=== PATIENT | male | born 1960 | race Caucasian/White ===

== ENCOUNTER → 2018-02-10 | Emergency (ER) | payer OTHER ==
[~2018-02-10] VITALS: Ht 170.2 cm; Wt 112.5 kg
[~2018-02-10] MED LIST: AVAPRO150 MG; CELEBREX100 MG; FOLIC ACID0.8 MG; HUMIRA40 MG/0.1; SYNTHROID50 MCG; TREXALL5 MG; ZOCOR20 MG
== END | disposition home or self-care (01) ==
LOC: ER 19:15
DX: J06.9 Acute upper respiratory infection, unspecified (principal); R31.9 Hematuria, unspecified; J11.1 Influenza due to unidentified influenza virus with other respiratory manifestations

== ENCOUNTER → 2018-03-24 | Outpatient (CLI) | payer OTHER | END | disposition home or self-care (01) | LOC: RAD 10:39 | DX: J44.0 Chronic obstructive pulmonary disease with (acute) lower respiratory infection (principal) ==

== ENCOUNTER 2018-08-27 09:49 | Emergency (ER) | payer OTHER ==
[~2018-08-27] VITALS: Ht 170.2 cm; Wt 111.6 kg
[2018-08-27] MEDS ORDERED: COZAAR100 MG PO (10:14)
[2018-08-27] MEDS ORDERED: METOPROLOL SUC100 MG PO (10:15)
== END 2018-08-27 14:15 | disposition home or self-care (01) ==
LOC: ER 09:49
DX: R42 Dizziness and giddiness (principal); J32.0 Chronic maxillary sinusitis; E11.649 Type 2 diabetes mellitus with hypoglycemia without coma

== ENCOUNTER 2019-05-12 09:43 | Emergency (ER) | payer OTHER ==
[~2019-05-12] VITALS: Ht 170.2 cm; Wt 112.5 kg
[~2019-05-12 09:43] MED LIST changes: +COZAAR100 MG PO; +METOPROLOL SUC100 MG PO
== END 2019-05-12 16:46 | disposition home or self-care (01) ==
LOC: ER 09:43
DX: N20.0 Calculus of kidney (principal); K57.90 Diverticulosis of intestine, part unspecified, without perforation or abscess without bleeding

== ENCOUNTER 2019-09-19 11:48 | Emergency (ER) | payer OTHER ==
[~2019-09-19] VITALS: Ht 170.2 cm; Wt 109.8 kg
== END 2019-09-19 20:00 | disposition home or self-care (01) ==
LOC: ER 11:48
DX: N20.0 Calculus of kidney (principal); K80.80 Other cholelithiasis without obstruction; N39.0 Urinary tract infection, site not specified; R10.32 Left lower quadrant pain

== ENCOUNTER 2020-01-11 11:17 | Emergency (ER) | payer OTHER ==
[~2020-01-11] VITALS: Ht 170.2 cm; Wt 108.0 kg
== END 2020-01-11 20:22 | disposition home or self-care (01) ==
LOC: ER 11:17
DX: K58.9 Irritable bowel syndrome, unspecified (principal); R31.29 Other microscopic hematuria

== ENCOUNTER 2020-02-14 11:50 | Emergency (ER) | payer OTHER ==
[~2020-02-14] VITALS: Ht 170.2 cm; Wt 108.0 kg
[2020-02-14] MEDS ORDERED: AVAPRO75 MG (12:05)
[2020-02-14] MEDS ORDERED: FORTAMET500 MG (12:07)
[2020-02-14] MEDS ORDERED: VITAMIN D-40010 MCG (12:07)
[2020-02-14] MEDS ORDERED: BACTRIM DS TAB1 EACH PO (14:19)
== END 2020-02-14 16:29 | disposition home or self-care (01) ==
LOC: ER 11:50
DX: N43.2 Other hydrocele (principal); N39.0 Urinary tract infection, site not specified; N50.89 Other specified disorders of the male genital organs

== ENCOUNTER → 2020-05-10 06:00 | Outpatient (CLI) | payer OTHER ==
[~2020-05-10 06:00] MED LIST changes: +AVAPRO75 MG; +BACTRIM DS TAB1 EACH PO; +FORTAMET500 MG; +VITAMIN D-40010 MCG; +VITAMIN D310 MCG/1 M PO
== END | disposition home or self-care (01) ==
LOC: LAB 06:00 → ADM 08:00 → CIR.AMB 05-14 07:00 → EDSTATUS 05-14 08:00 → CIR.AMB 05-14 08:00
PROVIDERS: ATTEND Surgery
DX: N20.0 Calculus of kidney (principal); Z01.810 Encounter for preprocedural cardiovascular examination

== ENCOUNTER 2020-07-11 09:31 | Day surgery (SDC) | payer OTHER ==
[~2020-07-11] VITALS: Ht 170.2 cm; Wt 105.7 kg
[2020-07-11] MEDS ORDERED: LEVAQUIN500 MG PO (18:08)
[2020-07-11] MEDS ORDERED: TAMS0.4C PO (18:08)
[2020-07-11] MEDS ORDERED: KETO10TA2 PO (18:08)
== END 2020-07-12 08:00 | disposition home or self-care (01) ==
LOC: ER 09:31 → SEC-K 13:52 → ER 13:52 → SURH 13:52 → O/R 13:52 → CIR.AMB 13:58 → EDSTATUS 15:00 → SEC-K 16:36 → SURH 16:36 → O/R 21:51 → SURH 21:51 → SEC-K 21:51 → O/R 07-12 02:50 → CIR.AMB 07-12 08:00
PROVIDERS: ATTEND Emergency Medicine
DX: N20.0 Calculus of kidney (principal); Z95.0 Presence of cardiac pacemaker

== ENCOUNTER 2022-06-16 00:05 | Emergency (ER) | payer OTHER ==
[~2022-06-16] VITALS: Ht 177.8 cm; Wt 113.4 kg
[~2022-06-16 00:05] MED LIST changes: +KETO10TA2 PO; +LEVAQUIN500 MG PO; +TAMS0.4C PO
[2022-06-16] MEDS ORDERED: DICLOFENAC SODI50 MG PO (04:21)
[2022-06-16] MEDS ORDERED: DUI500 PO (05:28)
[2022-06-16] MEDS ORDERED: INTESTINEX680 M1 PO (05:28)
== END 2022-06-17 | disposition home or self-care (01) ==
LOC: ER 00:05
DX: F41.8 Other specified anxiety disorders (principal); M19.90 Unspecified osteoarthritis, unspecified site; J45.909 Unspecified asthma, uncomplicated; I10 Essential (primary) hypertension; Z91.041 Radiographic dye allergy status

== ENCOUNTER 2022-10-27 13:01 | Emergency (ER) | payer OTHER ==
[~2022-10-27] VITALS: Ht 170.2 cm; Wt 122.5 kg
[~2022-10-27 13:01] MED LIST changes: +DICLOFENAC SODI50 MG PO; +DUI500 PO; +INTESTINEX680 M1 PO
== END 2022-10-27 15:33 | disposition home or self-care (01) ==
LOC: ER 13:01
DX: S30.811A Abrasion of abdominal wall, initial encounter (principal); L08.9 Local infection of the skin and subcutaneous tissue, unspecified

== ENCOUNTER 2022-11-05 06:05 | Emergency (ER) | payer OTHER ==
[~2022-11-05] VITALS: Ht 177.8 cm; Wt 138.3 kg
[2022-11-05] MEDS ORDERED: CEPHALEXIN500 MG PO (07:54)
[2022-11-05] MEDS ORDERED: MUPIROCIN1 G1 TOP (07:54)
== END 2022-11-05 07:57 ==
LOC: ER 06:05
DX: N47.1 Phimosis (principal); E11.9 Type 2 diabetes mellitus without complications; Z79.84 Long term (current) use of oral hypoglycemic drugs; I10 Essential (primary) hypertension

== ENCOUNTER 2022-11-16 12:14 | Emergency (ER) | payer OTHER ==
[~2022-11-16] VITALS: Ht 170.2 cm; Wt 122.5 kg
[~2022-11-16 12:14] MED LIST changes: +CEPHALEXIN500 MG PO; +MUPIROCIN1 G1 TOP
[2022-11-16] MEDS ORDERED: SIMVASTATIN20 MG PO (13:32)
[2022-11-16] MEDS ORDERED: FOLIC ACID1 MG PO (13:32)
[2022-11-16] MEDS ORDERED: MUPIROCIN1 G1 TOP (17:23)
[2022-11-16] MEDS ORDERED: NORFLEX100MG PO (17:30)
== END 2022-11-16 17:48 | disposition home or self-care (01) ==
LOC: ER 12:14
DX: S29.9XXA Unspecified injury of thorax, initial encounter (principal); W18.31XA Fall on same level due to stepping on an object, initial encounter; Y93.9 Activity, unspecified; Y92.019 Unspecified place in single-family (private) house as the place of occurrence of the external cause; S50.811A Abrasion of right forearm, initial encounter; S80.211A Abrasion, right knee, initial encounter

== ENCOUNTER → 2023-07-19 | Emergency (ER) | payer OTHER ==
[~2023-07-19] VITALS: Ht 170.2 cm; Wt 105.2 kg
[~2023-07-19] MED LIST changes: +FOLIC ACID1 MG PO; +NORFLEX100MG PO; +SIMVASTATIN20 MG PO
== END | disposition designated cancer center or children's hospital (05) ==
LOC: ER 14:07
PROVIDERS: Emergency Medicine
DX: R53.81 Other malaise (principal); I10 Essential (primary) hypertension; Z95.1 Presence of aortocoronary bypass graft; Z95.0 Presence of cardiac pacemaker
CPT/HCPCS: 36415; 71045; 93005; 96365; 99285; J7030

== ENCOUNTER 2024-05-23 13:39 | Emergency (ER) | payer OTHER ==
[~2024-05-23] VITALS: Ht 170.2 cm; Wt 99.8 kg
[2024-05-23] MEDS ORDERED: 0.9 % SODIUM CHLORIDE 1,000 ML IV STA (14:51)
[2024-05-23 16:28] LABS: HEMOGLOBIN 12.3 g/dL (13-16.00); MEAN CELL VOLUME 92.7 fL (80.0-100.00); MEAN CORPUSCULAR HEMOGLOBIN 31.6 pg (27.00-32.0); MEAN CORPUSCULAR HGB CONC 34.1 g/dl (32.0-36.0); PLATELET COUNT 201 K/uL (150-450); RED BLOOD COUNT 3.89 M/uL (4.00-6.00); RED CELL DISTRIBUTION WIDTH 16.6 % (11.5-14.5)
[2024-05-23 16:54] LABS: ALBUMIN 2.6 gm/dL (3.4-5.0); BILIRUBIN TOTAL 1.18 mg/dL (0.3-1.2); BILIRUBIN,CONJUGATED 0.29 mg/dL (0.0-0.2); BILIRUBIN,UNCONJUGATED 0.89 mg/dL (0.0-0.6); CREATININE SERUM 1.01 mg/dL (0.70-1.30); GFR 74.85; POTASSIUM 3.84 mEq/L (3.5-5.1); TOTAL PROTEIN 7.3 gm/dL (6.4-8.2)
[2024-05-23 17:15] LABS: URINE APPEARANCE Clear; URINE BILIRRUBIN Negative (NEGATIVE); URINE BLOOD Negative; URINE COLOR Yellow; URINE GLUCOSE Negative (NEGATIVE); URINE LEUKOCYTE Negative; URINE NITRATE Negative; URINE PROTEIN Trace (NEGATIVE)
[2024-05-23 17:19] LABS: URINE EPITHELIAL CELLS 6.1 uL (0.0-38.8); URINE RBC 2.1 uL (0.0-20.8); URINE WBC 6.9 uL (0.0-23.2)
[2024-05-23] MEDS ORDERED: ONDANSETRON HCL 2 MG/ML VIAL IV ONE (22:45)
== END 2024-05-23 22:40 | disposition home or self-care (01) ==
LOC: ER 13:39
PROVIDERS: General Practice
DX: K80.20 Calculus of gallbladder without cholecystitis without obstruction (principal); R10.9 Unspecified abdominal pain; M19.90 Unspecified osteoarthritis, unspecified site; I10 Essential (primary) hypertension; N20.0 Calculus of kidney
CPT/HCPCS: 36415; 74177; 93005; 96365; 96366; 99284; J2405; J7030; Q9965

== ENCOUNTER 2024-05-25 19:15 | Inpatient (IN) | payer OTHER ==
[~2024-05-25] VITALS: Ht 170.2 cm; Wt 95.3 kg
--- NOTE | 2024-05-25 19:30 | NUR ---
SE LLAMA A PACIENTE EL CUAL NO SE ENCUENTRA EN AREA DE LUPE DE EMERGENCIAS.
--- NOTE | 2024-05-25 19:39 | NUR ---
SE RECIBE PTE DE AMBULANCIA CUYA QUEJA PRINCIPAL ES MALESTAR EN AMBOS FLANCOS DESDE EL SABADO PASADO. SE LE PREGUNTA A PTE SI ES MALESTAR O DOLOR Y PTE DESCRIBE NAIMA MOLESTIA. SE OBSERVA PTE CANALIZADO EN [place] CON ANGIO #20, EL CUAL ESTA PATENTE, CRYSTAL DE EDEMA Y ERITEMA. SE MIDEN SV Y SE UBICA EN PASILLO. PTE NOTIFICA EN REPETIDAS OCASIONES DISGUSTO EN REFERENCIA A QUE LE DIERON EL CYNDI LA ULTIMA VEZ QUE VISITO LUPE DE EMERGENCIAS, EN VEZ DE OPERARLO. SE LE ORIENTA A PTE QUE LAS OPERACIONES NO FUNCIONAN ASI, PTE CONTINUA EN BOYD PENSAR.
[2024-05-25] MEDS ORDERED: FAMOTIDINE/PF 20 MG in 0.9 % SODIUM CHLORIDE 8 ML IV PUSH STA (20:46)
--- NOTE | 2024-05-25 20:51 | NUR ---
MASCULINO EVALUADO POR DR BECERRA. SE ORIENTA A PTE SOBRE ORDENES MEDICAS Y REFIERE ENTENDER. SE COLECTAN MUESTRAS DE LABORATORIO BAJO MEDIDAS ASEPTICAS. SE CANALIZA Y SE ADMINISTRAN MEDICAMENTOS JAYDA ORDEN MEDICA. SE NOTIFICA SONOGRAMA PENDIENTE.
[2024-05-25] MEDS ORDERED: ONDANSETRON HCL 2 MG/ML VIAL IV ONE (21:00)
[2024-05-25 21:13] LABS: HEMOGLOBIN 12.7 g/dL (13-16.00); MEAN CELL VOLUME 92.1 fL (80.0-100.00); MEAN CORPUSCULAR HEMOGLOBIN 31.7 pg (27.00-32.0); MEAN CORPUSCULAR HGB CONC 34.4 g/dl (32.0-36.0); PLATELET COUNT 237 K/uL (150-450); RED BLOOD COUNT 4.02 M/uL (4.00-6.00); RED CELL DISTRIBUTION WIDTH 16.9 % (11.5-14.5)
[2024-05-25 21:33] LABS: BILIRUBIN TOTAL 1.04 mg/dL (0.3-1.2); BILIRUBIN,CONJUGATED 0.24 mg/dL (0.0-0.2); BILIRUBIN,UNCONJUGATED 0.8 mg/dL (0.0-0.6); CALCIUM 9.1 mg/dL (8.5-10.1); CREATININE SERUM 1.14 mg/dL (0.70-1.30); GFR 65.09; GLOBULINA 4.7 G/DL (2.4-3.5); POTASSIUM 3.46 mEq/L (3.5-5.1); TOTAL PROTEIN 7.7 gm/dL (6.4-8.2)
[2024-05-25] MEDS ORDERED: MEPERIDINE HCL/PF 25 MG/ML VIAL IM ONE (23:15)
[2024-05-25] MEDS ORDERED: PROMETHAZINE HCL 25 MG/ML AMPUL IM ONE (23:15)
[2024-05-25] MEDS ORDERED: CEFTRIAXONE SODIUM 2,000 MG in 0.9 % SODIUM CHLORIDE 100 ML IV SCH (23:41)
[2024-05-25] MEDS ORDERED: ONDANSETRON HCL 4 MG in 0.9 % SODIUM CHLORIDE 50 ML IV PRN (23:45)
[2024-05-25] MEDS ORDERED: ACETAMINOPHEN 500 MG GEL..CAP PO PRN (23:45)
[2024-05-25] MEDS ORDERED: DEXTROSE 50 % IN WATER 0.5 G/ML DISP.SYRIN IV PRN (23:45)
[2024-05-25] MEDS ORDERED: 0.9 % SODIUM CHLORIDE 1,000 ML IV SCH (23:45)
[2024-05-25] MEDS ORDERED: INSULIN LISPRO 1,000 UNIT/10 ML UNITS SUBCUTANEO PRN (23:45)
[2024-05-25] MEDS ORDERED: MEPERIDINE HCL/PF 25 MG/ML VIAL IM PRN (23:45)
[2024-05-25] MEDS ORDERED: TAMSULOSIN HCL 0.4 MG CAP PO SCH (23:47)
[2024-05-26] MEDS ORDERED: METRONIDAZOLE/SODIUM CHLORIDE 100 ML IV SCH (01:00)
[2024-05-26 01:53] LABS: INR 1.09; PARTIAL THROMBOPLASTIN TIME 28.5 SECONDS (22.0-34.0); PROTHROMBIN TIME 11.4 SECONDS (9.0-11.5)
[2024-05-26 03:09] LABS: PH,URINE 5.5 (5.0-8.0); URINE APPEARANCE Clear; URINE BILIRRUBIN Negative (NEGATIVE); URINE BLOOD Negative; URINE COLOR Yellow; URINE GLUCOSE Negative (NEGATIVE); URINE LEUKOCYTE Trace; URINE NITRATE Negative; URINE PROTEIN Trace (NEGATIVE)
[2024-05-26 03:12] LABS: URINE BACTERIA 18.8 uL (0.0-1933); URINE EPITHELIAL CELLS 6.7 uL (0.0-38.8); URINE WBC 19.7 uL (0.0-23.2)
[2024-05-26 03:14] LABS: URINE RBC 1.2 uL (0.0-20.8)
[2024-05-26] MEDS ORDERED: LEVOTHYROXINE SODIUM 50 MCG TABLET PO SCH (06:00)
[2024-05-26] MEDS ORDERED: ATORVASTATIN CALCIUM 40 MG TABLET PO SCH (09:00)
[2024-05-26] MEDS ORDERED: IRBESARTAN 300 MG TABLET PO SCH (09:00)
[2024-05-26] MEDS ORDERED: DEXTROSE 50 % IN WATER 0.5 G/ML VIAL IV PRN (12:45)
[2024-05-26] MEDS ORDERED: ENOXAPARIN SODIUM 100 MG/ML SYRINGE SUBCUTANEO SCH (21:00)
[2024-05-27 13:30] LABS: HEMATOCRIT 35.8 % (39.0-48.0); HEMOGLOBIN 12.1 g/dL (13-16.00); MEAN CELL VOLUME 93.3 fL (80.0-100.00); MEAN CORPUSCULAR HEMOGLOBIN 31.4 pg (27.00-32.0); MEAN CORPUSCULAR HGB CONC 33.7 g/dl (32.0-36.0); PLATELET COUNT 203 K/uL (150-450); RED BLOOD COUNT 3.84 M/uL (4.00-6.00)
[2024-05-27 14:00] LABS: INR 1.12; PROTHROMBIN TIME 11.7 SECONDS (9.0-11.5)
[2024-05-27 14:17] LABS: ALBUMIN 2.9 gm/dL (3.4-5.0); BILIRUBIN TOTAL 0.92 mg/dL (0.3-1.2); CALCIUM 9.2 mg/dL (8.5-10.1); CREATININE SERUM 1.23 mg/dL (0.70-1.30); GFR 59.62; GLOBULINA 3.8 G/DL (2.4-3.5); POTASSIUM 3.47 mEq/L (3.5-5.1); TOTAL PROTEIN 6.7 gm/dL (6.4-8.2)
[2024-05-29 17:14] LABS: HEMATOCRIT 36.1 % (39.0-48.0); HEMOGLOBIN 12.1 g/dL (13-16.00); MEAN CELL VOLUME 94.6 fL (80.0-100.00); MEAN CORPUSCULAR HEMOGLOBIN 31.8 pg (27.00-32.0); MEAN CORPUSCULAR HGB CONC 33.6 g/dl (32.0-36.0); PLATELET COUNT 187 K/uL (150-450); RED BLOOD COUNT 3.82 M/uL (4.00-6.00); RED CELL DISTRIBUTION WIDTH 16.9 % (11.5-14.5)
== END 2024-05-31 10:31 | disposition home or self-care (01) | DRG 419 ==
LOC: ER 19:15 → MEDJ 23:45 → MEDI 23:45
PROVIDERS: General Practice; Internal Medicine; Specialist; ADMIT Internal Medicine; ATTEND Internal Medicine
PROC: BW40ZZZ Ultrasonography of Abdomen (ICD-10-PCS; 2024-05-25)
PROC: B24BZZZ Ultrasonography of Heart with Aorta (ICD-10-PCS; 2024-05-27)
PROC: B24BZZZ Ultrasonography of Heart with Aorta (ICD-10-PCS; 2024-05-29)
PROC: 0FT44ZZ Resection of Gallbladder, Percutaneous Endoscopic Approach (ICD-10-PCS; principal; 2024-05-29 15:30)
DX: K80.00 Calculus of gallbladder with acute cholecystitis without obstruction (principal); E03.9 Hypothyroidism, unspecified; E78.5 Hyperlipidemia, unspecified; I25.10 Atherosclerotic heart disease of native coronary artery without angina pectoris; I11.9 Hypertensive heart disease without heart failure

== ENCOUNTER 2024-06-17 16:15 | Inpatient (IN) | payer OTHER ==
[~2024-06-17] VITALS: Ht 170.2 cm; Wt 99.8 kg
--- NOTE | 2024-06-17 16:27 | NUR ---
PACIENTE MASCULINO ALERTA Y ORIENTADO X3, REFIERE DOLOR DE PECHO MALIK Y ROXIE Y LA PRESION ARTERIAL BAJA. SE LE REALIZA EKG Y SE LE PRESENTA A Y VERBALIZA COLOCARLO EN AREA DE CHEST PAIN.
[2024-06-17] MEDS ORDERED: 0.9 % SODIUM CHLORIDE 1,000 ML IV SCH ×2 (16:45→19:00)
[2024-06-17 17:17] LABS: HEMATOCRIT 35.5 % (39.0-48.0); MEAN CELL VOLUME 92.4 fL (80.0-100.00); MEAN CORPUSCULAR HEMOGLOBIN 31.3 pg (27.00-32.0); MEAN CORPUSCULAR HGB CONC 33.9 g/dl (32.0-36.0); PLATELET COUNT 206 K/uL (150-450); RED BLOOD COUNT 3.84 M/uL (4.00-6.00)
[2024-06-17 17:39] LABS: ALBUMIN 2.4 gm/dL (3.4-5.0); BILIRUBIN TOTAL 1.5 mg/dL (0.3-1.2); BILIRUBIN,CONJUGATED 0.4 mg/dL (0.0-0.2); BILIRUBIN,UNCONJUGATED 1.1 mg/dL (0.0-0.6); CALCIUM 8.7 mg/dL (8.5-10.1); CREATININE SERUM 1.37 mg/dL (0.70-1.30); GFR 52.65; GLOBULINA 4.1 G/DL (2.4-3.5); POTASSIUM 3.68 mEq/L (3.5-5.1); TOTAL PROTEIN 6.5 gm/dL (6.4-8.2)
[2024-06-17] MEDS ORDERED: ATORVASTATIN CALCIUM 40 MG TABLET PO SCH (18:52)
[2024-06-17] MEDS ORDERED: FAMOTIDINE/PF 20 MG in 0.9 % SODIUM CHLORIDE 8 ML IV PUSH SCH (18:52)
[2024-06-17] MEDS ORDERED: TICAGRELOR 90 MG TABLET PO SCH (18:56)
[2024-06-17] MEDS ORDERED: ASPIRIN 81 MG TAB.CHEW PO SCH (18:56)
[2024-06-17] MEDS ORDERED: DEXTROSE 50 % IN WATER 0.5 G/ML DISP.SYRIN IV PRN (19:00)
[2024-06-17] MEDS ORDERED: ONDANSETRON HCL 4 MG in 0.9 % SODIUM CHLORIDE 50 ML IV PRN (19:00)
[2024-06-17] MEDS ORDERED: ACETAMINOPHEN 500 MG GEL..CAP PO PRN (19:00)
[2024-06-17] MEDS ORDERED: INSULIN LISPRO 1,000 UNIT/10 ML UNITS SUBCUTANEO PRN (19:00)
[2024-06-17] MEDS ORDERED: TICAGRELOR 90 MG TABLET PO ONE (21:07)
[2024-06-17] MEDS ORDERED: FAMOtidine 200mg/20ml VIAL ONE (21:09)
[2024-06-17 22:33] LABS: PARTIAL THROMBOPLASTIN TIME 24.1 SECONDS (22.0-34.0)
[2024-06-17 22:35] LABS: D DIMER 2.38 MG/L
[2024-06-17 22:37] LABS: INR 1.07; PROTHROMBIN TIME 11.2 SECONDS (9.0-11.5)
[2024-06-18 05:18] LABS: PH,URINE 6.5 (5.0-8.0); URINE APPEARANCE Clear; URINE BACTERIA 75.5 uL (0.0-1933); URINE BILIRRUBIN Negative (NEGATIVE); URINE BLOOD Negative; URINE COLOR Yellow; URINE EPITHELIAL CELLS 8.4 uL (0.0-38.8); URINE GLUCOSE Negative (NEGATIVE); URINE KETONE 15 (NEGATIVE); URINE LEUKOCYTE Trace; URINE NITRATE Negative; URINE PROTEIN Trace (NEGATIVE); URINE RBC 7.3 uL (0.0-20.8)
[2024-06-18 05:19] LABS: URINE CAST 0.76 uL (0.0-1.40)
[2024-06-18] MEDS ORDERED: LEVOTHYROXINE SODIUM 50 MCG TABLET PO SCH (06:00)
[2024-06-18] MEDS ORDERED: TICAGRELOR 90 MG TABLET PO ONE (06:20)
[2024-06-18] MEDS ORDERED: 0.9 % SODIUM CHLORIDE 1,000 ML IV SCH (07:30)
[2024-06-18] MEDS ORDERED: NOREPINEPHRINE BITARTRATE 1 MG/ML AMPUL IV ONE (07:45)
[2024-06-18] MEDS ORDERED: ENOXAPARIN SODIUM 40 MG/0.4 ML SYRINGE SUBCUTANEO SCH (09:00)
[2024-06-18] MEDS ORDERED: ENOXAPARIN SODIUM 40 MG/0.4 ML SYRINGE SUBCUTANEO ONE (09:42)
[2024-06-18] MEDS ORDERED: FAMOtidine 200mg/20ml VIAL ONE (09:42)
[2024-06-18] MEDS ORDERED: NOREPINEPHRINE BITARTRATE 1 MG/ML AMPUL IV STA (10:21)
[2024-06-18] MEDS ORDERED: NOREPINEPHRINE BITARTRATE 8 MG in DEXTROSE 5 % IN WATER 250 ML IV SCH (13:30)
[2024-06-18] MEDS ORDERED: ENOXAPARIN SODIUM 100 MG/ML SYRINGE SUBCUTANEO SCH (21:00)
[2024-06-18] MEDS ORDERED: ORPHENADRINE CITRATE 30 MG/ML AMPUL ONE (21:43)
[2024-06-18] MEDS ORDERED: METOCLOPRAMIDE HCL 5 MG/ML VIAL ONE (21:43)
[2024-06-19 02:35] LABS: CALCIUM 8.3 mg/dL (8.5-10.1); CREATININE SERUM 1.05 mg/dL (0.70-1.30); GFR 71.57; POTASSIUM 3.09 mEq/L (3.5-5.1)
[2024-06-19] MEDS ORDERED: ONDANSETRON HCL 2 MG/ML VIAL ONE (04:13)
[2024-06-19] MEDS ORDERED: NOREPINEPHRINE BITARTRATE 1 MG/ML AMPUL IV ONE (04:20)
[2024-06-19] MEDS ORDERED: TICAGRELOR 90 MG TABLET PO ONE (16:43)
[2024-06-19] MEDS ORDERED: FAMOtidine 200mg/20ml VIAL ONE (20:28)
[2024-06-19] MEDS ORDERED: FAMOTIDINE/PF 20 MG in 0.9 % SODIUM CHLORIDE 8 ML IV PUSH SCH (21:00)
[2024-06-20 09:46] LABS: HEMATOCRIT 33.4 % (39.0-48.0); HEMOGLOBIN 11.4 g/dL (13-16.00); MEAN CELL VOLUME 93.5 fL (80.0-100.00); MEAN CORPUSCULAR HGB CONC 34.2 g/dl (32.0-36.0); PLATELET COUNT 164 K/uL (150-450); RED BLOOD COUNT 3.57 M/uL (4.00-6.00)
[2024-06-21] MEDS ORDERED: POTASSIUM CHLORIDE IN WATER 40 MEQ/100 ML PIGGYBAG IV SCH (13:58)
[2024-06-21] MEDS ORDERED: MAGNESIUM SULFATE IN WATER 50 ML IV NR (14:00)
[2024-06-21] MEDS ORDERED: DIATRIZOATE MEGLUMINE, SODIUM 30 ML BOTTLE PO STA (14:09)
[2024-06-21] MEDS ORDERED: VANCOMYCIN HCL 1,000 MG VIAL IV SCH (21:00)
[2024-06-22] MEDS ORDERED: POTASSIUM CHLORIDE IN WATER 40 MEQ/100 ML PIGGYBAG IV ONE (00:55)
[2024-06-22] MEDS ORDERED: FAMOtidine 20 MG TABLET PO SCH (09:00)
[2024-06-22 15:19] LABS: CREATININE SERUM 0.98 mg/dL (0.70-1.30); GFR 77.5; POTASSIUM 3.76 mEq/L (3.5-5.1)
== END 2024-06-22 17:50 | disposition home or self-care (01) | DRG 683 ==
LOC: ER 16:15 → ICU-2 19:57 → ICU 06-20 02:24 → MEDI 06-20 22:57
PROVIDERS: Emergency Medicine; General Practice; Internal Medicine; ADMIT Internal Medicine; ATTEND Internal Medicine
PROC: B246ZZZ Ultrasonography of Right and Left Heart (ICD-10-PCS; 2024-06-17)
PROC: BW21ZZZ Computerized Tomography (CT Scan) of Abdomen and Pelvis (ICD-10-PCS; 2024-06-17)
PROC: B54NZZZ Ultrasonography of Left Upper Extremity Veins (ICD-10-PCS; 2024-06-20)
PROC: B34JZZZ Ultrasonography of Left Upper Extremity Arteries (ICD-10-PCS; 2024-06-20)
PROC: 4A12X4Z Monitoring of Cardiac Electrical Activity, External Approach (ICD-10-PCS; principal; 2024-06-21)
PROC: 02HV33Z Insertion of Infusion Device into Superior Vena Cava, Percutaneous Approach (ICD-10-PCS; 2024-06-21)
DX: I13.10 Hypertensive heart and chronic kidney disease without heart failure, with stage 1 through stage 4 chronic kidney disease, or unspecified chronic kidney disease (principal); I5A Non-ischemic myocardial injury (non-traumatic); N17.9 Acute kidney failure, unspecified; E87.6 Hypokalemia; R22.32 Localized swelling, mass and lump, left upper limb; I25.10 Atherosclerotic heart disease of native coronary artery without angina pectoris; E11.22 Type 2 diabetes mellitus with diabetic chronic kidney disease; N18.9 Chronic kidney disease, unspecified; E03.9 Hypothyroidism, unspecified; R11.2 Nausea with vomiting, unspecified; Z79.84 Long term (current) use of oral hypoglycemic drugs; Z95.0 Presence of cardiac pacemaker

== ENCOUNTER 2024-08-03 16:43 | Emergency (ER) | payer OTHER ==
[~2024-08-03] VITALS: Ht 170.2 cm; Wt 105.2 kg
[2024-08-03] MEDS ORDERED: ONDANSETRON HCL 2 MG/ML VIAL IV ONE (18:15)
[2024-08-03] MEDS ORDERED: ONDANSETRON HCL 2 MG/ML VIAL ONE (18:21)
[2024-08-03] MEDS ORDERED: FAMOTIDINE/PF 20 MG/2 ML VIAL ONE (18:21)
[2024-08-03] MEDS ORDERED: 0.9 % SODIUM CHLORIDE 1,000 ML IV SCH (18:30)
[2024-08-03] MEDS ORDERED: FAMOTIDINE/PF 20 MG/2 ML VIAL IV PUSH ONE (18:30)
[2024-08-03 19:01] LABS: ALBUMIN 2.4 gm/dL (3.4-5.0); BILIRUBIN TOTAL 1.86 mg/dL (0.3-1.2); BILIRUBIN,CONJUGATED 0.59 mg/dL (0.0-0.2); BILIRUBIN,UNCONJUGATED 1.27 mg/dL (0.0-0.6); CREATININE SERUM 0.89 mg/dL (0.70-1.30); GFR 86.61; POTASSIUM 3.23 mEq/L (3.5-5.1); TOTAL PROTEIN 7.4 gm/dL (6.4-8.2)
[2024-08-03 19:14] LABS: HEMATOCRIT 39.1 % (39.0-48.0); HEMOGLOBIN 13.3 g/dL (13-16.00); MEAN CELL VOLUME 94.6 fL (80.0-100.00); MEAN CORPUSCULAR HEMOGLOBIN 32.1 pg (27.00-32.0); MEAN CORPUSCULAR HGB CONC 33.9 g/dl (32.0-36.0); PLATELET COUNT 188 K/uL (150-450); RED BLOOD COUNT 4.14 M/uL (4.00-6.00); RED CELL DISTRIBUTION WIDTH 16.9 % (11.5-14.5)
== END 2024-08-04 03:21 | disposition home or self-care (01) ==
LOC: ER 16:45
PROVIDERS: Emergency Medicine
DX: K29.70 Gastritis, unspecified, without bleeding (principal); E86.0 Dehydration; R11.10 Vomiting, unspecified; I10 Essential (primary) hypertension; E07.89 Other specified disorders of thyroid; K21.9 Gastro-esophageal reflux disease without esophagitis; E11.9 Type 2 diabetes mellitus without complications; Z79.84 Long term (current) use of oral hypoglycemic drugs
CPT/HCPCS: 36415; 96365; 96366; 99282; J2405; J3490; J7030